=== PATIENT | female | born 1960 | race Caucasian/White ===

== ENCOUNTER → 2016-07-09 | Outpatient (CLI) | payer OTHER ==
[~2016-07-09] MED LIST: CYCL10TA6 PO; OXYC1TAB3 PO
[2016-07-09 18:03] LABS: THYROID STIMULATING HORMONE 0.037 uIu/ml (0.300-4.500)
== END | disposition home or self-care (01) ==
LOC: C.LAB1850 16:38
PROVIDERS: ATTEND Internal Medicine Endocrinology, Diabetes & Metabolism
DX: E05.90 Thyrotoxicosis, unspecified without thyrotoxic crisis or storm (principal)

== ENCOUNTER → 2016-09-12 | Outpatient (CLI) | payer OTHER ==
[2016-09-12 18:37] LABS: THYROID STIMULATING HORMONE 0.689 uIu/ml (0.300-4.500)
== END | disposition home or self-care (01) ==
LOC: C.LAB1850 16:37
PROVIDERS: ATTEND Internal Medicine Endocrinology, Diabetes & Metabolism
DX: E05.90 Thyrotoxicosis, unspecified without thyrotoxic crisis or storm (principal); E55.9 Vitamin D deficiency, unspecified

== ENCOUNTER → 2016-10-19 | Outpatient (CLI) | payer OTHER ==
[2016-10-19 09:38] LABS: ESTIMATED AVERAGE GLUCOSE 123 mg/dl; HA1C FLAG Normal (Normal)
[2016-10-19 09:50] LABS: CHOLESTEROL/HDL RATIO 4.7
== END | disposition home or self-care (01) ==
LOC: C.LAB 08:20
PROVIDERS: ATTEND Internal Medicine Endocrinology, Diabetes & Metabolism
DX: E05.00 Thyrotoxicosis with diffuse goiter without thyrotoxic crisis or storm (principal); E78.00 Pure hypercholesterolemia, unspecified; E66.9 Obesity, unspecified

== ENCOUNTER → 2017-04-04 | Outpatient (CLI) | payer OTHER ==
--- NOTE | 2017-04-04 15:13 | DIAGNOSTIC IMAGING REPORT ---
SOFT TISS HEAD/NECK-THYROID CLINICAL HISTORY: 56 years-old Female presenting with E04.1 Thyroid [id number] Graves [id number]. TECHNIQUE: Real-time grayscale and color Doppler ultrasound imaging of the thyroid and base of the neck was performed. COMPARISON: 05/29/2016. FINDINGS: Right lobe: Normal echogenicity and echotexture. The right lobe of the thyroid measures 5.6 x 1.7 x 2.3 cm. Nodules below: 1) 2.3 x 1.4 x 2.3 cm isoechoic well-defined with minor cystic components (very low suspicion pattern) 2) 0.5 x 0.3 x 0.4 cm cyst at the interpolar to lower pole (benign) Left lobe: Normal echogenicity and echotexture. The left lobe of the thyroid measures 3.2 x 0.6 x 0.6 cm. Nodules below: 1) 0.5 x 0.2 x 0.5 cm lower pole cyst (benign) Isthmus: The isthmus measures 3 mm in thickness. No nodules. IMPRESSION: Dominant right thyroid nodule has a very low suspicion pattern but is over 2 cm in size. Observation of this nodule by 6-12 month follow-up ultrasound is a reasonable alternative rather than fine-needle aspiration. Electronically signed by: Bill Kirkland M.D. 04/04/2017 3:12 PM Dictated Date/Time: 04/04/2017 3:08 PM
== END | disposition home or self-care (01) ==
LOC: C.ULTR 14:23
PROVIDERS: ATTEND Internal Medicine Endocrinology, Diabetes & Metabolism
DX: E04.1 Nontoxic single thyroid nodule (principal); E05.00 Thyrotoxicosis with diffuse goiter without thyrotoxic crisis or storm